=== PATIENT | female | born 1985 | race Caucasian/White ===

== ENCOUNTER 2022-08-04 04:42 | Emergency (ER) | payer MEDICAID ==
[~2022-08-04] VITALS: Ht 157.5 cm; Wt 85.7 kg
[2022-08-04 04:45] VITALS: BP_SYST 115; BP_SYST 120; BP_DIAS 64; BP_DIAS 85
--- NOTE | 2022-08-04 04:48 | NUR ---
TO BED AMBULATORY
--- NOTE | 2022-08-04 05:11 | NUR ---
37 yo f bib self with c/c of 8/10 abd pain [id number] last night. reports n/v. denies blood in stool. pt took ibuprofen with minimal relief. denies hx rx and allergies
[2022-08-04] MEDS ORDERED: IBUP-2213 PO (05:37)
[2022-08-04] MEDS ORDERED: OMEP40EC23 PO (05:37)
[2022-08-04] MEDS ORDERED: KETOROLAC 60 MG/2 ML VIAL IM ONE (05:37)
[2022-08-04] MEDS ORDERED: ONDA8TAB87 PO (05:37)
--- NOTE | 2022-08-04 05:40 | NUR ---
received verbal order from [facility] to give toradol 60mg IM. orders carried out.
--- NOTE | 2022-08-04 05:51 | NUR ---
pt expressed relief 5/10 abd pain. pt states she can tolerate this.
[2022-08-04 05:53] VITALS: BP 115/64
--- NOTE | 2022-08-04 05:53 | NUR ---
Patient discharged with v/s stable. Written and verbal after care instructions given and explained. Patient alert, oriented and verbalized understanding of instructions. Ambulatory with steady gait. All questions addressed prior to discharge. ID band removed. Patient advised to follow up with PMD. Rx of ibuprofen, prilosec, zofran given. Patient educated on indication of medication including possible reaction and side effects. Opportunity to ask questions provided and answered.
== END 2022-08-04 05:53 | disposition home or self-care (01) ==
LOC: MED 04:42
DX: R10.13 Epigastric pain (principal); Z98.890 Other specified postprocedural states
CPT/HCPCS: 81002; 81025; 99283; J1885

== ENCOUNTER 2024-03-17 16:50 | Emergency (ER) | payer MEDICAID, OTHER ==
[~2024-03-17] VITALS: Ht 152.4 cm; Wt 89.8 kg
[~2024-03-17 16:50] MED LIST: IBUP-2213 PO; OMEP40EC23 PO; ONDA8TAB87 PO
[2024-03-17 17:10] VITALS: BP 113/65; PULSE 68; RESP 16; TEMP 97.6; O2SAT 99
[2024-03-17] MEDS: KETOROLAC 30 MG/ML VIAL IM ONE (18:09)
[2024-03-17] MEDS ORDERED: NAPR-1704 PO (18:43)
== END 2024-03-17 18:57 | disposition home or self-care (01) ==
LOC: MED 16:50
DX: S90.31XA Contusion of right foot, initial encounter (principal); Z79.899 Other long term (current) drug therapy; X58.XXXA Exposure to other specified factors, initial encounter; Y93.89 Activity, other specified; Y92.89 Other specified places as the place of occurrence of the external cause; Y99.8 Other external cause status
CPT/HCPCS: 73630; 81025; 96372; 99283; J1885

== ENCOUNTER 2024-04-13 16:09 | Emergency (ER) | payer OTHER ==
[~2024-04-13] VITALS: Ht 162.6 cm; Wt 92.5 kg
[~2024-04-13 16:09] MED LIST changes: +NAPR-1704 PO
[2024-04-13 16:24] VITALS: BP 105/53; PULSE 66; RESP 18; TEMP 98.1; O2SAT 97
[2024-04-13] MEDS ORDERED: LOPE2CAP5 PO (17:08)
[2024-04-13] MEDS ORDERED: BISM262T5 PO (17:08)
[2024-04-13] MEDS ORDERED: ONDA-188 PO (17:08)
[2024-04-14] MEDS ORDERED: LOPE2CAP5 PO (12:52)
[2024-04-14] MEDS ORDERED: BISM262T5 PO (12:52)
== END 2024-04-13 17:27 | disposition home or self-care (01) ==
LOC: MED 16:09
DX: A08.4 Viral intestinal infection, unspecified (principal); E86.0 Dehydration; Z79.1 Long term (current) use of non-steroidal anti-inflammatories (NSAID); Z79.899 Other long term (current) drug therapy
CPT/HCPCS: 99283